=== PATIENT | male | born 1960 | race Caucasian/White ===

== ENCOUNTER → 2018-09-12 12:09 | Outpatient (CLI) | payer BC, SELFPAY ==
[2018-09-12 13:03] LABS: Bacteria Urine None Seen; RBC Urine None Seen (0-5/HPF); WBC Urine None Seen (0-5/HPF)
[2018-09-12 13:40] LABS: Appearance Urine UA CLEAR; Bilirubin Urine UA NEGATIVE (NEGATIVE); Color Urine UA YELLOW; Glucose Urine UA NEGATIVE (Normal); Ketones Urine UA NEGATIVE (NEGATIVE); Leukocyte Esterase Urine UA NEGATIVE (NEGATIVE); Nitrite Urine UA NEGATIVE (Negative); Occult Blood Urine UA NEGATIVE (Negative); Protein Urine UA NEGATIVE (Negative); Specific Gravity Urine UA 1.025 (1.000-1.035); Urobilinogen Urine UA 0.2 E.U./dL (0.2)
[2018-09-12 14:29] LABS: Culture Indicated Urine Cult Not Indicated
== END ==
PROVIDERS: PCP Family Medicine; Visit Provider Family Medicine
DX: Z01.818 Encounter for other preprocedural examination (principal); Z01.812 Encounter for preprocedural laboratory examination; Z13.1 Encounter for screening for diabetes mellitus; N39.0 Urinary tract infection, site not specified; M25.562 Pain in left knee
CPT/HCPCS: 81001; 93005; 93010

== ENCOUNTER 2018-10-18 10:56 | Inpatient (IN) | payer BC, SELFPAY ==
[2018-09-29 13:55] VITALS: BMI 37.3
[2018-10-18] VITALS (14 sets, daily range): BP systolic 123–161; BP diastolic 69–98; PULSE 73–92; RESP 11–20; TEMP 36.4–36.8; O2SAT 92–98; BMI 36.7
[2018-10-18] MEDS: PREGABALIN 75 MG CAPSULE PO (11:26)
[2018-10-18] MEDS: ACETAMINOPHEN 325 MG TABLET 975 MG PO ×2 (11:27→21:13)
[2018-10-18] MEDS: CELECOXIB 200 MG CAPSULE PO (11:27)
[2018-10-18] MEDS: LACTATED RINGERS 1,000 ML 42 ML IV (11:52)
--- NOTE | 2018-10-18 12:19 | PM.PREOP ---
Pre-operative Note Interval Note Pre-op Check: Yes History & Physical Reviewed by Physician and Yes Exam Performed Changes: No
[2018-10-18] MEDS: CEFAZOLIN 2 GM/100 ML FROZ.PIGGY IV ×2 (13:10→21:20)
--- NOTE | 2018-10-18 13:50 | SUR.OPER ---
Supine on padded OR bed. Pillow under head, arms secured on padded armboards <90 degree abduction. Safety belt across torso. Non-operative leg secured with tape over blanket over lower leg. Operative leg secured in DeMayo/Rodrigo positioner. Foam padded brace at thigh of operative leg.
[2018-10-18] MEDS: TRANEXAMIC ACID 1,000 MG VIAL 2000 MG INJ ×2 (13:58→14:57)
[2018-10-18] MEDS: BUPIVACAINE LIPOSOME 266 MG/20 ML VIAL INJ (14:00)
[2018-10-18] MEDS: BUPIVACAINE 0.25% W/ EPI VIAL 50 ML INJ (14:00)
[2018-10-18] MEDS: MORPHINE 4 MG/ML INJ IM (14:01)
[2018-10-18] MEDS: SODIUM CHLORIDE 0.9% 1406.14 ML IV (14:49)
--- NOTE | 2018-10-18 15:23 | DI.RAD.S_ITS ---
PROCEDURE: XR KNEE LT 1TO2V INDICATIONS: TOTAL LEFT KNEE TECHNIQUE: 2 view(s) of the knee acquired. [facility], [facility]Y, XR KNEE ARTHRITIC SERIES LT, 02/08/2018, 9:44. FINDINGS: Bones: Patient is status post knee joint arthroplasty. Hardware components are in expected positions. Visualized bony structures are intact. Soft tissues: Overlying postoperative changes are noted. IMPRESSION: Post operative knee arthroplasty as above. Dictated by: Luann Hall M.D. on 10/18/2018 at 16:17 Approved by: Luann Hall M.D. on 10/18/2018 at 16:17
--- NOTE | 2018-10-18 15:32 | P.OP_ITS ---
Operative Date/Time/Diagnoses Date of procedure: 10/18/18 Time of procedure: 15:20 Pre-op diagnosis: 1. Ongoing pain after left unicompartmental arthroplasty 2. Osteoarthritis of left knee Post-op diagnosis: same Procedure & Clinicians Procedure: Revision of both femoral and tibial components of unicompartmental arthroplasty to total knee replacement, left knee Same procedure as scheduled: Yes Indications: The patient is a 57-year-old gentleman who underwent unicompartmental knee replacement to the left knee earlier this year. He has had persistent and significant discomfort despite intensive physical therapy. After discussion the risks benefits and alternatives he has agreed to revision of the prosthetic. He has requested revision to total knee replacement rather than revision to another unicompartmental arthroplasty. The risks benefits and alternatives of surgery were discussed with him prior to proceeding. Risks discussed included but were not limited to: Failure to improve, stiffness, infection, deep venous thrombosis, pulmonary embolism, nerve damage, myocardial infarction, stroke, permanent paralysis and . Surgeon: Mauricio Shine Cuprous Chloride Helper: Sanjuanita Adhikari Click Yes if Unassisted: No Anesthesia Type: General, Spinal and Local Operative Notes Findings: Well-fixed unicompartmental arthroplasty with slight overhang of the medial edge of the tibial component. There was significant osteoarthritis in the patellofemoral joint and moderate osteoarthritis in the lateral compartment. Closure Type: primary Specimen(s): none sent Implants & Drains: Implants used in this procedure were manufactured by the [employer] and included the BCS II Journey total knee replacement with a size 8 left Oxinium femoral component, 8 left non porous tibial base plate, 9 mm cross-linked polyethylene tibial insert, and a 41 mm oval Sowmya II patellar component. Applied: implant(s) Estimated Blood Loss (mL): 50 Blood products transfused: none Tourniquet time (min): 76 Procedure in detail: The patient was seen in the pre-operative area, where the left knee was identified as the operative site and this was marked with my initials. The patient received pre-operative antibiotics, and was taken to the operating room and placed on the operative table in the supine position. After satisfactory anesthesia, a director multimedia out was performed. The left leg was encircled with a tourniquet about the proximal thigh, and the leg was prepared from the toes to the tourniquet with ChloroPrep in the usual fashion and draped through sterile drapes. The leg was elevated and exsanguinated with Eschmark bandage and the tourniquet inflated to 250 mmHg pressure. The knee was approached through an approximately 18 cm incision centered which included the prior incision and carried into the knee through a medial parapatellar arthrotomy. The anterior osteophytes and soft tissues were removed. The rotational landmarks of Troy's line was marked on the femur with electrocautery, and intramedullary guide holes for the femur and tibia were created. The distal femoral cut was made in 6 degrees of valgus using the intramedullary guide at the +2 mm cut setting. Initially the pins were placed for the cutting guide prior to removal of the femoral prosthetic. The medial femoral arthroplasty was then removed using osteotomes prior to making the distal femoral cut. The sizing guide was applied with rotation set by Gayle 's line. The femoral finishing guide was applied and the anterior posterior and chamfer cuts made. The proximal tibial cut was then made using the intramedullary guide, taking a skim cut just below the tibial prosthetic. The cutting guide was set up similar to the femur and after placement of the pins the tibial component was removed using osteotomes prior to making the proximal tibial cut. The posterior osteophytes and soft tissues were then removed. The posterior capsule was injected with part of a mixture of 60 ml 0.25% Marcaine mixed with 20 ml Exparel and 4 mg of morphine for post-operative pain control. The remainder of this mixture was injected into the capsule and subcutaneous tissues during cement curing. The tibia was prepared with the rotation set by an extra medullary guide. Trial tibial and femoral components were then placed and the intercondylar notch cut through the femoral trial. Range of motion was 0-135 degrees, with good stability throughout the range. The patella was then cut to accommodate the patellar prosthetic. There was no need for a lateral release. The trials were then removed, and the femoral hole plugged with a bone plug. The bone was prepared with pulsatile lavage, and dried with a sponge. Cement was applied and the final prosthetics placed. Excess cement was removed during and after cement curing. After confirming there was no extruded cement posteriorly, the final tibial insert was placed. The knee was copiously irrigated and the tourniquet deflated. Hemostasis was obtained. The capsule was closed with interrupted # 2 polyester sutures. The subcutaneous layer was closed with 3-0 Vicryl, and the skin with a running 3-0 V-Lock suture and SteriStrips. An Aquacel Ag dressing was applied and the patient was taken to recovery having tolerated the procedure well. Complications: none Condition: stable Disposition: PACU Plan for aftercare: The patient will be maintained on a standard total knee replacement protocol with weight bearing as tolerated. The patient will receive aspirin and sequential compression devices for DVT prophylaxis. The patient will be discharged home when safe for the home environment.
--- NOTE | 2018-10-18 15:40 | SUR.OPER ---
Pt. has multiple scratches on his left lower leg; observed before prep.
[2018-10-18] MEDS: LACTATED RINGERS 1,000 ML 125 ML IV (17:30)
[2018-10-18] MEDS: ASPIRIN EC 81 MG TABLET PO (21:15)
[2018-10-18] MEDS: DOCUSATE 100 MG CAPSULE PO (21:15)
--- NOTE | 2018-10-18 23:51 | PC.NURSE ---
1730- pt arrived to room 213 from PACU via bed with a Lt TKA, aquacell/daisy wrap CDI. A/O x3, 98%RA, LS clear, BT+ denies nausea. CMS- remains numbness from mid thigh down to feet, unable to wiggle toes or ankle wave. Left hand LR @ 125 infusing. Calf SCD's on. Provided ice chips, water, and brought gatorade, tolerated well. Advanced to reg diet for dinner. Urinal at bedside. Denies pain at this time. Call light in reach and bed alarm on.
[2018-10-19] VITALS (7 sets, daily range): BP systolic 128–153; BP diastolic 68–87; PULSE 67–96; RESP 16–20; TEMP 36.4–37.6; O2SAT 95–99
--- NOTE | 2018-10-19 00:53 | PC.NURSE ---
Addendum entered by Nhung Fish R.N. 10/19/18 05:31: Complains of itchiness and mild discomfort with leg movement. Requests Vistaril as he states that has helped the itching in the past. Original Note: Addendum entered by Nhung Fish R.N. 10/19/18 03:03: Has been complaining of feeling as though he has to have BM and has been unable to do. States it is putting pressure on his bladder and he is uncomfortable. While sitting on toilet had 300cc emesis; states nausea came on suddenly and now is resolved. Bladder scan indicates 889cc in bladder so straight cathed for 1250cc clear yellow urine. Now states pressure is completely relieved. Original Note: Addendum entered by Nhung Fish R.N. 10/19/18 01:43: Complaining of 2/10 pain so medicated with Ibuprofen Original Note: Patient is alert and oriented. Breath sounds CTA with RA sat of 94%. Does not want to use CPAP tonight so will monitor for any desats while asleep using continuous pulse oximeter. HRR. Denies nausea. BT present and states he has passed flatus. Voiding with some hesitancy; has to push urine out, but denies dysuria. Turns self and is assisted to bathroom to void with walker and 1 assist; denies weakness or unsteadiness. Aquacel + daisy wrap to left knee is CDI. CMS is intact. Has psoriasis with lesions/abrasions on bilateral anterior shins and at bases of nails on right hand; states he likes to pick at areas. Non pitting edema present in bilateral LE. SCD's applied at start of shift. Denies pain. Fall risk score is moderate; bed alarm activated for night.
[2018-10-19] MEDS: LACTATED RINGERS 1,000 ML 125 ML IV (01:39)
[2018-10-19] MEDS: IBUPROFEN 600 MG TABLET PO ×2 (01:39→08:46)
[2018-10-19] MEDS: CEFAZOLIN 2 GM/100 ML FROZ.PIGGY IV (05:26)
[2018-10-19] MEDS: hydrOXYzine pamoate 25 MG CAPSULE PO (05:27)
[2018-10-19 06:38] LABS: Hematocrit 37.5 % (41-53); Hemoglobin 12.7 g/dL (13.5-17.5)
--- NOTE | 2018-10-19 07:27 | PM.DS.1 ---
History of Present Illness Date Patient Seen: 10/19/18 Time Patient Seen: 07:27 Chief complaint: [id number] Narrative: The history and physical exam for this patient are contained in the chart and a previously completed note. Please refer to that note for this information. Discharge Providers Date of admission: 10/18/18 10:56 Primary care physician: Dmitriy Herrera MD Consults: 10/18/18 16:53 Consult to Discharge Planning Routine Comment: Consult to Physical Therapy Evaluate & Treat Comment: Physician Instructions: postop TKA protocol Consult to Respiratory Therapy Evaluate & Treat Comment: Physician Instructions: Evaluate and treat Discharge provider: Mauricio Shine MD Discharge Date: 10/19/18 Summary Discharge Diagnosis: 1. Failure of left unicompartmental knee arthroplasty 2. Left knee osteoarthritis 3. Postoperative urinary retention Hospital Course: The patient was admitted the hospital and taken directly to the operating room on October 18 2018. He underwent a revision of unicompartmental arthroplasty to a total knee replacement. He tolerated this procedure well and was ready for discharge on postoperative day 1. He did have an episode of urinary retention overnight requiring straight catheterization. At the time of this dictation it is planned for discharge later this morning after physical therapy. Status at Discharge Cognitive/behavioral status at discharge: Baseline Functional status at discharge: uses cane/walker Overall status at discharge: patient is progressing back to baseline Time Spent with Patient Less than 30 minutes Exam Vital Signs (past 8 hours): - 10/19/18 03:00 Temperature 97.9 F Pulse Rate 72 Respiratory Rate 16 Blood Pressure 128/79 Pulse Oximetry 95 Oxygen Delivery Method Room Air Oxygen Flow Rate 3 Narrative Exam Narrative: Left lower extremity wound is dressed with no drainage on the bandage. Calf is soft. Light touch and motion are intact in the left lower extremity. Objective Labs Result Diagrams: 10/19/18 06:09 Labs: Laboratory Results - last 24 hr 10/19/18 06:09 Hgb 12.7 L Hct 37.5 L Radiographs reveal a well-positioned left total knee arthroplasty. No signs of any operative complications. Discharge Plan Discharge Plan Patient Disposition: Home Discharge Med Rec/Prescriptions Prescriptions: New aspirin 81 mg Tablet,Delayed Release (Dr/Ec) 81 mg PO BID 42 Days Qty: 84 RF: 0 acetaminophen 325 mg Tablet 975 mg PO TID 30 Days Qty: 270 RF: 0 oxycodone 5 mg Tablet 5 mg PO Q3HR PRN (Reason: Pain, Moderate (4-6)) Qty: 60 RF: 0 hydroxyzine pamoate 25 mg Capsule 25 mg PO Q6HR PRN (Reason: Nausea) Qty: 40 RF: 0 Follow up/Referrals: Mauricio Shine MD [Physician] - 2 Weeks Provider Discharge Instructions Diet: Diet as Tolerated and Regular Activity: You may weight bear as tolerated on your left leg. Ambulate for 5-10 minutes every hour while awake. Cold/Heat Therapy: Apply ice to the left knee for 15 min every hour as needed. Skin/Wound/Dressing Care Report to your healthcare provider any signs of infection, such as:: chills, fever, night sweats, increased pain and unusual drainage Dressing: You may remove the Roberto Carlos wrap 3 days after surgery and shower normally. Leave the deeper dressing in place. If the central strip of the deeper dressing becomes saturated with either water or blood please call the office to have it changed. Discharge Data Primary Care Provider: Dmitriy Herrera Attending Provider: Mauricio Shine Admit Date/Time: 10/18/18 10:56 Quality VTE Deep Vein Thrombosis/Pulmonary Embolism Present on Admission: No
[2018-10-19] MEDS: OXYCODONE IR 5 MG TABLET PO ×4 (08:45→21:48)
[2018-10-19] MEDS: TAMSULOSIN 0.4 MG CAPSULE PO (08:46)
[2018-10-19] MEDS: ASPIRIN EC 81 MG TABLET PO ×2 (08:46→21:47)
[2018-10-19] MEDS: DOCUSATE 100 MG CAPSULE PO ×2 (08:46→21:48)
[2018-10-19] MEDS: ACETAMINOPHEN 325 MG TABLET 975 MG PO ×3 (08:47→21:47)
--- NOTE | 2018-10-19 09:46 | PT.IIE ---
Addendum entered and electronically signed by Ally Vera PT 10/19/18 16:12: This is to certify that I have reviewed this documentation and POC. Original Note: Current Diagnoses Unilateral primary osteoarthritis, left knee (10/18/18) Presence of unspecified artificial knee joint (10/18/18) Surgery Performed Operation Date: 10/18/18 12:45 Actual Procedures p Revision tibial component of UKA, Poss total knee(Left) - Mauricio Shine MD Surgical History (Last Updated 09/29/18 @ 14:11 by Dominique Machado RN) H/O vasectomy (Acute) History of arthroplasty of left knee (Acute ~12/2017) Hx of hernia repair (Acute) Medical History (Last Updated 09/29/18 @ 14:11 by Dominique Machado RN) Arthritis (Acute) Chronic liver disease (Acute) Hypercholesterolemia (Acute) Left Achilles tendinitis (Acute) Migraines (Acute) ERICA on CPAP (Acute) Psoriasis (Acute) Trigger finger of right hand (Acute) Vitamin D deficiency (Acute) Physical Therapy Inpatient Evaluation/Re-Eval M1 PT/OT-IP Prior Functional Status Start: 10/19/18 13:05 Freq: NEEDED Status: Active Protocol: Document 10/19/18 09:46 (Rec: 10/19/18 14:01 [email or web address]) Medical Review Prior Functional Status Medical History Reviewed Yes Communication No deficits noted. Mobility and Gait Pt states independent with all mobilities using no AD including self care and driving. He limps with pain after longer distances walking. Social History Household Members spouse Living Arrangements House Number of Floors (Floors) Two Floors Number of Stairs To Enter/Railing? 3 steps no rails. 18 steps B rails to upstairs where his bedroom and walk in shower are located. He is prepared to sleep in his recliner on the first floor and take sponge baths for a while if needed. Home Environment Standard Height Toilet Walk in Shower Built-In Shower Seat Home Equipment Straight Cane Crutches Hand Held Shower Employment Status Process Control Supervisor Employed Additional Social History Comment Pt not returning to work until Oct 8 at a minimum. Pts bed has mechanical feature to elevate HOB. Can use the door jam in bathroom to assist sit<> stand from toilet. M2 PT-IP Current Condition Start: 10/19/18 13:05 Freq: NEEDED Status: Active Protocol: Document 10/19/18 09:46 (Rec: 10/19/18 14:01 [email or web address]) Physical Therapy Current Condition Current Condition Evaluation Date 10/19/18 Treatment Diagnosis L TKR; Difficulty walking Onset Date 10/18/2018 Weight Bearing Status Weight Bearing Status Weight Bear as Tolerated M3 PT-IP Subjective Start: 10/19/18 13:05 Freq: NEEDED Status: Active Protocol: Document 10/19/18 09:46 (Rec: 10/19/18 14:01 [email or web address]) Subjective Physical Therapy Visit Type Type Initial Evaluation Visit Start Time 09:46 Visit Stop Time 10:42 Total Visit Minutes 56 Number of REGISTERED NURSE HH CASE MANAGER Visits 0 Physical Therapy Visit Comments Patient Comments Pt agreeable to mobilize with PT Patient Goals Pt planning to d/c home with who is avaliable to assist 21/06. He would like to access the 2nd floor of his home. Therapy Pain Assessment Pain When Pain Assessed During Mobility Pain Present Pain Present Pain Reported Location Left Knee Scale Used 0-3 while resting. Up to 5/10 during mobility. Pain Management Techniques Apply Cold Elevation Modification of Treatment Re-positioning Timing of Activity with Medications M4 PT-IP Mobility and Gait Start: 10/19/18 13:05 Freq: NEEDED Status: Active Protocol: Document 10/19/18 09:46 (Rec: 10/19/18 14:01 [email or web address]) PT-Bed Mobility Assessment Supine to Sit Supine to Sit Standby Assistance Sit to Supine Sit to Supine Standby Assistance Scooting Scooting to Edge of Bed Standby Assistance PT-Transfer Assessment Sit to and From Stand Sit to and from Stand Contact Guard Assistance Maximum Assistance 1 Person Assistance Use of Upper Extremities Equipment Transfer Assistive Device Gait Belt Front Wheeled Walker Orthotic/Prosthetic Devices or Brace: No Transfers Transfer Destination Bed Chair Wheelchair Transfer Technique Ambulates between surfaces Comments Mobility Comments Resting BP 125/77 HR 78. Sit <> supine is SBA no cues. Sit <> stand with fww is CGA with min cues. Pt denying symptoms of dizziness, headache or nausea. Attempted sit <> stand with B axillary crutches maxAX1 to rise and pt is (+) for LOB requiring Edward to regain balance. Pt not safe with B crutches; recommending fww. Gait Assessment Gait Gait Assistance Required: Standby Assistance Distance (Feet) 50 Able to Maintain Weight Bearing Status Yes During Gait Assistive Devices Assistive Device Gait Belt Front Wheeled Walker Orthotic/Prosthetic Devices or Brace: No Gait Deviations General Gait Pattern Decreased Stride Length Flexed Trunk Factors Limiting Gait Function Factors Limiting Gait Function Decreased Activity Tolerance Decreased Strength Limited Range of Motion Pain Poor Balance Poor Safety Awareness Comments Gait Comments Pt ambulates 50 ft in room with fww SBA min cues for walker management. Gait is notable for decreased stride length and forward flexed trunk. Flexed trunk is likely due to poorly fitting fww. Pt states 6'7 height and was given the tallest walker avaliable. Pt is able to partially correct posture with cues. Stair Climbing Assessment Evaluation Level of Assist On Stairs Contact Guard Assistance Minimal Assistance Devices Stair Climbing Assistive Devices Straight Cane Left Railing Right Railing Technique/Endurance Stair Climbing Direction Ascend and Descend Stair Climbing Technique Step to Step Number of Steps Climbed 3 Query Text: Stair Climbing Set # Repetitions (reps) 3 Comments Stair Climbing Comments 1st attempt up/down 3 steps pt uses moderate reliance on B rails, CGA and min cues. 2nd attempt pt uses R rail ascending, L rail descending, CGA and min cues. 3rd attempt pt uses spc in R hand, minAx1 for support and steadying and min cues. PT-Balance Assessment Sitting Balance and Reactions Static Sitting Balance Ability Good Dynamic Sitting Balance Ability Good Standing Balance and Reactions Static Standing Balance Ability Good Dynamic Standing Balance Ability Fair Device Used fww M5 PT-IP Objective Assessments Start: 10/19/18 13:05 Freq: NEEDED Status: Active Protocol: Document 10/19/18 09:46 (Rec: 10/19/18 14:01 [email or web address]) Orientation Orientation/Cognition Level of Alertness Alert Orientation Name Age Birthday Month Date Year Day of Week Place Situation Language Function Ability No Deficits Noted Safety Awareness Decreased Safety Awareness Memory Description No Deficits Noted Gross Range of Motion Lower Extremity ROM Assessment Left Impaired Impairments L knee flexion 90deg. Strength Lower Extremity Strength Assessment Left Impaired Hip 3+ Knee 3+ Ankle 5 Comments Strength Comments RLE 5/5 Sensation Assessment Sensation Light Touch Intact M6 PT-IP Treatment Start: 10/19/18 13:05 Freq: NEEDED Status: Active Protocol: Document 10/19/18 09:46 (Rec: 10/19/18 14:01 [email or web address]) Physical Therapy Treatment Exercises Exercises Ankle Pumps Quad Sets Heel Slides Straight Leg Raises Short Arc Quads Passive Knee Extension Hang Seated Knee Flexion/Extension Education Education Provided Precautions Weight Bearing Status Post-Op Packet Safety M7 PT-IP Assessment and Plan Start: 10/19/18 13:05 Freq: NEEDED Status: Active Protocol: Document 10/19/18 09:46 (Rec: 10/19/18 14:01 [email or web address]) PT Summary Assessment and Plan Potential Rehabilitation Potential Good Status of Condition at Evaluation Stable Summary Impairments Pain ROM Strength Balance Bed Mobility Transfers Gait Activity Tolerance Progress Towards Goals Slow Progress due to Medical Issues Assessment Summary Pt s/p L TKA with difficulty walking. He was able to walk 50 ft with fww and CGA and completed up/down 3 steps with Edward and spc. Pt is not safe using axillary crutches and our recommendation is to use fww for all ambulation and transfers. He understands and is attempting to secure a walker through the [employer] in [place] as does not want to purchase a fww unless it is covered 100% by his insurance. Caregiver training needs to be completed prior to d/c as pt is requiring assist with mobilities for safety. Once caregiver training is completed and pt is medically ready, recommend d/c to home with 24/7 assist of and OP PT. Goals Bed Mobility Goal Independent Transfer Goal Standby Assistance Front Wheeled Walker Gait Goal Standby Assistance Front Wheel Walker Gait Distance 150 Other Goals up/down 3 steps using spc CGA. Up/down 18 steps B rails CGA as able for pt to be able to access 2nd floor of his home where his bedroom and shower are. Days to Meet Goals 2 Frequency of Treatment Frequency Of Treatment Twice a Day Treatment Plan Physical Therapy Treatment Plan Bed Mobility Training Transfer Training Gait Training Therapeutic Exercise Balance Retraining Post Op Education Discharge Planning Hot or Cold Pack Neuromuscular Re-ed Coordination Retraining Manual Therapy Other Recommendations and Next Treatment Caregiver training. Progress Focus stair climbing. Recommendations To Nursing Amount of Assist Needed 1 Person Assist Discharge Recommendations PT Discharge Recommendations Home with 24/7 Assist Outpatient PT Equipment Needed for Home Before fww Discharge
--- NOTE | 2018-10-19 14:50 | PT.IPTN ---
Addendum entered and electronically signed by Ally Vera PT 10/19/18 17:23: This is to certify that I have reviewed this documentation and POC Original Note: Current Diagnoses Unilateral primary osteoarthritis, left knee (10/18/18) Presence of unspecified artificial knee joint (10/18/18) Surgery Performed Operation Date: 10/18/18 12:45 Actual Procedures p Revision tibial component of UKA, Poss total knee(Left) - Mauricio Shine MD Physical Therapy Treatment Note M2 PT-IP Current Condition Start: 10/19/18 13:05 Freq: NEEDED Status: Active Protocol: Document 10/19/18 09:46 (Rec: 10/19/18 14:01 [id number]) Physical Therapy Current Condition Current Condition Evaluation Date 10/19/18 Treatment Diagnosis L TKR; Difficulty walking Onset Date 10/18/2018 Weight Bearing Status Weight Bearing Status Weight Bear as Tolerated M3 PT-IP Subjective Start: 10/19/18 13:05 Freq: NEEDED Status: Active Protocol: Document 10/19/18 14:50 (Rec: 10/19/18 17:02 [id number]) Subjective Physical Therapy Visit Type Type Treatment Note Visit Start Time 14:50 Visit Stop Time 15:15 Total Visit Minutes 25 Number of R D INTERNSHIP Visits 0 Physical Therapy Visit Comments Patient Comments Pt agreeable to mobilize with PT. present for session and agreeable to participate in caregiver training. Pt obtained fww. Patient Goals Planning to d/c home with assist of . Desires access to upstairs floor (18 steps B rails) Therapy Pain Assessment Pain When Pain Assessed During Mobility Pain Present Pain Present Pain Reported Location Left Knee Intensity 3 Pain Management Techniques Apply Cold Elevation Modification of Treatment Re-positioning Timing of Activity with Medications M4 PT-IP Mobility and Gait Start: 10/19/18 13:05 Freq: NEEDED Status: Active Protocol: Document 10/19/18 14:50 (Rec: 10/19/18 17:02 [id number]) PT-Transfer Assessment Sit to and From Stand Sit to and from Stand Standby Assistance Use of Upper Extremities Equipment Transfer Assistive Device Front Wheeled Walker Orthotic/Prosthetic Devices or Brace: No Transfers Transfer Destination Chair Transfer Technique Ambulates between surfaces. Comments Mobility Comments Sit <> stand with fww SBA no cues. Gait Assessment Gait Gait Assistance Required: Standby Assistance Distance (Feet) 300 Able to Maintain Weight Bearing Status Yes During Gait Assistive Devices Assistive Device Gait Belt Front Wheeled Walker Orthotic/Prosthetic Devices or Brace: No Gait Deviations General Gait Pattern Antalgic Decreased Stride Length Factors Limiting Gait Function Factors Limiting Gait Function Decreased Activity Tolerance Decreased Strength Limited Range of Motion Pain Poor Balance Comments Gait Comments Pt ambulates 300 ft with fww SBA. Gait notable for antalgic limp over LLE and decreased stride length R LE. Antalgic gait as patient progresses walking. Stair Climbing Assessment Evaluation Level of Assist On Stairs Minimal Assistance 1 Person Assistance Devices Stair Climbing Assistive Devices Straight Cane Technique/Endurance Stair Climbing Direction Ascend and Descend Stair Climbing Technique Step to Step Number of Steps Climbed 3 Query Text: Stair Climbing Set # Repetitions (reps) 3 Comments Stair Climbing Comments 1st attempt pt performs up/ down 3 steps with spc and minAx1 provided by PT as a demonstration for caregiver/ . 2nd and 3rd attempts, pt performs up/down 3 steps with minAx1 provided by caregiver/, caregiver needed min cues and PT providing SBA for safety. PT-Balance Assessment Sitting Balance and Reactions Static Sitting Balance Ability Good Dynamic Sitting Balance Ability Good Standing Balance and Reactions Static Standing Balance Ability Good Dynamic Standing Balance Ability Fair Device Used fww M5 PT-IP Objective Assessments Start: 10/19/18 13:05 Freq: NEEDED Status: Active Protocol: Document 10/19/18 09:46 (Rec: 10/19/18 14:01 [id number]) Orientation Orientation/Cognition Level of Alertness Alert Orientation Name Age Birthday Month Date Year Day of Week Place Situation Language Function Ability No Deficits Noted Safety Awareness Decreased Safety Awareness Memory Description No Deficits Noted Gross Range of Motion Lower Extremity ROM Assessment Left Impaired Impairments L knee flexion 90deg. Strength Lower Extremity Strength Assessment Left Impaired Hip 3+ Knee 3+ Ankle 5 Comments Strength Comments RLE 5/5 Sensation Assessment Sensation Light Touch Intact M6 PT-IP Treatment Start: 10/19/18 13:05 Freq: NEEDED Status: Active Protocol: Document 10/19/18 14:50 (Rec: 10/19/18 17:02 [id number]) Physical Therapy Treatment Exercises Knee ROM Measurement L knee flexion 90 deg. L knee extension lacks ~10deg Education Education Provided Safety Other Treatments Other Treatment Performed Caregiver training today included donning/doffing of gait belt, hand hold on gait belt and safeguarding during ambulation and stairs. Pt and caregiver were both able to demonstrate all of the above safely and stated being comfortable wtih performance. M7 PT-IP Assessment and Plan Start: 10/19/18 13:05 Freq: NEEDED Status: Active Protocol: Document 10/19/18 14:50 (Rec: 10/19/18 17:02 [id number]) PT Summary Assessment and Plan Potential Rehabilitation Potential Good Summary Impairments Pain ROM Strength Balance Bed Mobility Transfers Gait Activity Tolerance Progress Towards Goals Progressing Toward Goals Assessment Summary Caregiver training completed. Pt ambulated 300 ft with fww and SBA of as well as up/ down 6 steps with providing minAX1 with min cues . Pt and demonstrated safety with all concepts. When pt is medically ready, recommend d/c to home with assist of and OP PT. Goals Bed Mobility Goal Independent Transfer Goal Independent Front Wheeled Walker Gait Goal Independent Front Wheel Walker Gait Distance 400 ft. Other Goals Up/down 18 steps with B rails so pt may access 2nd floor where his bedroom and shower are located. Days to Meet Goals 2 Frequency of Treatment Frequency Of Treatment Twice a Day Treatment Plan Physical Therapy Treatment Plan Bed Mobility Training Transfer Training Gait Training Therapeutic Exercise Balance Retraining Post Op Education Discharge Planning Hot or Cold Pack Neuromuscular Re-ed Coordination Retraining Manual Therapy Other Recommendations and Next Treatment progress stair climbing and Focus ambulation. Recommendations To Nursing Amount of Assist Needed Standby Assistance Discharge Recommendations PT Discharge Recommendations Home with Assistance Outpatient PT Equipment Needed for Home Before Pt obtained fww. Discharge
--- NOTE | 2018-10-19 15:15 | PC.NURSE ---
Ortho: I/O Cath at 0300 this am. Pt up to br at 0800, not able to void. PA made aware and received order for flomax. Same given. IVF were salined locked. Pt instructed not to overdo fluids but he does need to drink. Has been up several times to amb. Did try to vd x2 but unable. Last bladder scan at 1230 was 350mls. Pt would like to try amb again after his family leaves and then sitting in the shower to see if that helps relaxes muscles and he can urinate. Ortho [place] he has done well, up and amb with sba only. Gait is steady, is following his total hip precautions. PPP, fett =/warm. Aquacel dressing dry. Tolerates diet w/out problems. If it wasn't for the voiding issues he feels he could d/c home today. Hopefull will be able to void. Cont w/poc.
--- NOTE | 2018-10-19 20:59 | PC.NURSE ---
Addendum entered by Shira Mendez R.N. 10/19/18 21:07: 1830- Pt up to BRP to void 750mL clear yellow urine, and med loose stool. Original Note: 1645- pt up to BRP FWW to void 450mL clear yellow urine. Back to chair for dinner, then walk hallways with student nurse. Left knee aquacell/acewrap CDI. BT+, denies nausea. Rates pain 2-4/10, oxycodone 5mg PO effective for pain relief. discharge ordered by Dr Shine this morning. Pt's will be here at 11:00am tomorrow to pick pt up. No c/o or concerns at this time. Call light in reach.
[2018-10-19] MEDS: SODIUM CHLORIDE 0.9% FLUSH 10 ML IV (21:30)
[2018-10-20 01:24] VITALS: BP 115/73; PULSE 77; RESP 14; TEMP 36.9; O2SAT 95
[2018-10-20] MEDS: OXYCODONE IR 5 MG TABLET PO ×3 (03:50→10:34)
--- NOTE | 2018-10-20 03:58 | PC.NURSE ---
Addendum entered by Nhung Fish R.N. 10/20/18 05:50: States pain is nearly gone. Has been awake watching TV and working on leg exercises. Expects to DC this morning around 0930 Original Note: Has been sleeping most of shift. Now aroused readily to voice. Is alert and oriented. Breath sounds diminished but CTA with RA sat of 97%; using CPAP when asleep. HRR. Denies nausea. BT present and is passing flatus but abdomen is distended and firm to touch. Voided 500cc urine with PVR of 54cc; denies dysuria. Able to turn self in bed. Was able to get in/out of bed independently and walked to bathroom with walker and SBA. CMS is intact. Initially denied pain but after being up to bathroom states pain is 6/10 with movement and 3/10 at rest; medicated with Oxycodone and ice pack applied. Dressing + daisy is CDI. Fall risk score is moderate; no bed alarm needed at this time as patient calling appropriately for assistance.
[2018-10-20 03:59] VITALS: TEMP 36.7
--- NOTE | 2018-10-20 08:46 | PT.IPTN ---
Current Diagnoses Unilateral primary osteoarthritis, left knee (10/18/18) Presence of unspecified artificial knee joint (10/18/18) Surgery Performed Operation Date: 10/18/18 12:45 Actual Procedures p Revision tibial component of UKA, Poss total knee(Left) - Mauricio Shine MD Physical Therapy Treatment Note M2 PT-IP Current Condition Start: 10/19/18 13:05 Freq: NEEDED Status: Active Protocol: Document 10/20/18 08:40 AMB (Rec: 10/20/18 08:46 AMB [id number]) Physical Therapy Current Condition Current Condition Evaluation Date 10/19/18 Treatment Diagnosis L TKR; Difficulty walking Onset Date 10/18/2018 Weight Bearing Status Weight Bearing Status Weight Bear as Tolerated M3 PT-IP Subjective Start: 10/19/18 13:05 Freq: NEEDED Status: Active Protocol: Document 10/20/18 08:40 AMB (Rec: 10/20/18 08:46 AMB [id number]) Subjective Physical Therapy Visit Type Type Treatment Note Visit Start Time 08:10 Visit Stop Time 08:40 Total Visit Minutes 30 Number of MANAGER OF DEVELOPMENT Visits 0 Physical Therapy Visit Comments Patient Comments Pt agreeable to get up. He has already walked with nursing earlier in the morning . Therapy Pain Assessment Pain When Pain Assessed During Mobility Pain Present Pain Present Pain Reported M4 PT-IP Mobility and Gait Start: 10/19/18 13:05 Freq: NEEDED Status: Active Protocol: Document 10/20/18 08:40 AMB (Rec: 10/20/18 08:46 AMB [id number]) PT-Bed Mobility Assessment Supine to Sit Supine to Sit Standby Assistance Sit to Supine Sit to Supine Standby Assistance Scooting Scooting to Edge of Bed Independent PT-Transfer Assessment Sit to and From Stand Sit to and from Stand Standby Assistance Use of Upper Extremities Equipment Transfer Assistive Device Front Wheeled Walker Orthotic/Prosthetic Devices or Brace: No Transfers Transfer Destination Chair Transfer Technique Ambulates between surfaces. Comments Mobility Comments Sit <> stand with fww SBA no cues. Gait Assessment Gait Gait Assistance Required: Standby Assistance Distance (Feet) 150 Able to Maintain Weight Bearing Status Yes During Gait Assistive Devices Assistive Device Gait Belt Front Wheeled Walker Orthotic/Prosthetic Devices or Brace: No Gait Deviations General Gait Pattern Antalgic Decreased Stride Length Factors Limiting Gait Function Factors Limiting Gait Function Decreased Activity Tolerance Decreased Strength Limited Range of Motion Pain Poor Balance Comments Gait Comments Pt ambulated 150 feet with stiff gait. Better as he warmed up, but needed vc for knee flexion with swing through. Stair Climbing Assessment Evaluation Level of Assist On Stairs Standby Assistance Devices Stair Climbing Assistive Devices Right Railing Technique/Endurance Stair Climbing Direction Ascend and Descend Stair Climbing Technique Step to Step Number of Steps Climbed 3 Query Text: Stair Climbing Set # Repetitions (reps) 3 Comments Stair Climbing Comments Pt with 3 steps to enter without railing, but will have a pillar and use his SPC. has already been trained in how to gaurd him. M5 PT-IP Objective Assessments Start: 10/19/18 13:05 Freq: NEEDED Status: Active Protocol: Document 10/19/18 09:46 (Rec: 10/19/18 14:01 [id number]) Orientation Orientation/Cognition Level of Alertness Alert Orientation Name Age Birthday Month Date Year Day of Week Place Situation Language Function Ability No Deficits Noted Safety Awareness Decreased Safety Awareness Memory Description No Deficits Noted Gross Range of Motion Lower Extremity ROM Assessment Left Impaired Impairments L knee flexion 90deg. Strength Lower Extremity Strength Assessment Left Impaired Hip 3+ Knee 3+ Ankle 5 Comments Strength Comments RLE 5/5 Sensation Assessment Sensation Light Touch Intact M6 PT-IP Treatment Start: 10/19/18 13:05 Freq: NEEDED Status: Active Protocol: Document 10/20/18 08:40 AMB (Rec: 10/20/18 08:46 AMB [id number]) Physical Therapy Treatment Exercises Exercises Ankle Pumps Quad Sets Heel Slides Knee ROM Measurement knee AAROM in seated with other leg helping M7 PT-IP Assessment and Plan Start: 10/19/18 13:05 Freq: NEEDED Status: Active Protocol: Document 10/20/18 08:40 AMB (Rec: 10/20/18 08:46 AMB [id number]) PT Summary Assessment and Plan Summary Assessment Summary Pt is doing well, although does have pain with knee flexion. Reviewed HEP. Pt is hoping to d/c home with today, that would be appropriate when medically stable. Goals Bed Mobility Goal Independent Transfer Goal Independent Front Wheeled Walker Gait Goal Independent Front Wheel Walker Gait Distance 400 ft. Other Goals Up/down 18 steps with B rails so pt may access 2nd floor where his bedroom and shower are located. Days to Meet Goals 2 Frequency of Treatment Frequency Of Treatment Once a Day Treatment Plan Physical Therapy Treatment Plan Bed Mobility Training Transfer Training Gait Training Therapeutic Exercise Balance Retraining Post Op Education Discharge Planning Hot or Cold Pack Neuromuscular Re-ed Coordination Retraining Manual Therapy Other Recommendations and Next Treatment progress stair climbing and Focus ambulation. Recommendations To Nursing Amount of Assist Needed Standby Assistance Discharge Recommendations PT Discharge Recommendations Home with Assistance Outpatient PT Equipment Needed for Home Before Pt obtained fww. Discharge
--- NOTE | 2018-10-20 09:06 | PM.DS.1 ---
History of Present Illness Date Patient Seen: 10/20/18 Time Patient Seen: 09:07 Chief complaint: [id number] Narrative: The history and physical exam for this patient are contained in the chart and a previously completed note. Please refer to that note for this information. Discharge Providers Date of admission: 10/18/18 10:56 Primary care physician: Dmitriy Herrera MD Consults: 10/18/18 16:53 Consult to Discharge Planning Routine Comment: Consult to Physical Therapy Evaluate & Treat Comment: Physician Instructions: postop TKA protocol Consult to Respiratory Therapy Evaluate & Treat Comment: Physician Instructions: Evaluate and treat Discharge provider: Mauricio Shine MD Discharge Date: 10/20/18 Summary Discharge Diagnosis: 1. Failed left knee unicompartmental arthroplasty 2. Left knee osteoarthritis 3. Postoperative urinary retention Hospital Course: Patient was admitted to the hospital and taken directly to the operating room on October 20, 2018. He underwent an uncomplicated revision of unicompartmental arthroplasty to total knee replacement. His postoperative course was marked by adequate pain control however he did have difficulty with urination. This required straight catheterization and eventually he had additional trouble voiding and therefore his discharge was held yesterday until this morning. Yesterday evening he began spontaneously void large amounts and has had no further difficulty urinating. He has made excellent progress with physical therapy and at this point is ready for discharge home. Status at Discharge Cognitive/behavioral status at discharge: Baseline Functional status at discharge: uses cane/walker Overall status at discharge: patient is progressing back to baseline Time Spent with Patient Less than 30 minutes Exam Vital Signs (past 8 hours): - 10/20/18 01:24 10/20/18 03:59 Temperature 98.4 F 98.0 F Pulse Rate 77 Respiratory Rate 14 Blood Pressure 115/73 Pulse Oximetry 95 Oxygen Delivery Method Room Air,CPAP Oxygen Flow Rate 0 Objective Labs Result Diagrams: 10/19/18 06:09 Discharge Plan Discharge Plan Patient Disposition: Home Discharge Med Rec/Prescriptions Prescriptions: New aspirin 81 mg Tablet,Delayed Release (Dr/Ec) 81 mg PO BID 42 Days Qty: 84 RF: 0 acetaminophen 325 mg Tablet 975 mg PO TID 30 Days Qty: 270 RF: 0 oxycodone 5 mg Tablet 5 mg PO Q3HR PRN (Reason: Pain, Moderate (4-6)) Qty: 60 RF: 0 hydroxyzine pamoate 25 mg Capsule 25 mg PO Q6HR PRN (Reason: Nausea) Qty: 40 RF: 0 Follow up/Referrals: Dmitriy Herrera MD [Primary Care Provider] - Mauricio Shine MD [Physician] - 2 Weeks Provider Discharge Instructions Diet: Diet as Tolerated and Regular Activity: You may weight bear as tolerated on your left leg. Ambulate for 5-10 minutes every hour while awake. Cold/Heat Therapy: Apply ice to the left knee for 15 min every hour as needed. Skin/Wound/Dressing Care Report to your healthcare provider any signs of infection, such as:: chills, fever, night sweats, increased pain and unusual drainage Dressing: You may remove the [place] wrap 3 days after surgery and shower normally. Leave the deeper dressing in place. If the central strip of the deeper dressing becomes saturated with either water or blood please call the office to have it changed. Visit Report/Discharge Packet Visit Report Forms: Stroke Signs & Symptoms Discharge Data Primary Care Provider: Dmitriy Herrera Attending Provider: Mauricio Shine Admit Date/Time: 10/18/18 10:56 Quality VTE Deep Vein Thrombosis/Pulmonary Embolism Present on Admission: No
[2018-10-20] MEDS: ASPIRIN EC 81 MG TABLET PO (09:13)
[2018-10-20] MEDS: ACETAMINOPHEN 325 MG TABLET 975 MG PO (09:13)
[2018-10-20] MEDS: TAMSULOSIN 0.4 MG CAPSULE PO (09:13)
[2018-10-20] MEDS: DOCUSATE 100 MG CAPSULE PO (09:14)
[2018-10-20 10:17] VITALS: PULSE 83; RESP 20; TEMP 36.8; O2SAT 95
== END 2018-10-20 11:24 | disposition home or self-care (01) | DRG 467 ==
PROVIDERS: Admitting Provider Orthopaedic Surgery; PCP Family Medicine; Visit Provider Orthopaedic Surgery
PROC: 0SRD0J9 Replacement of Left Knee Joint with Synthetic Substitute, Cemented, Open Approach (ICD-10-PCS; principal; 2018-10-18 12:45)
DX: M17.12 Unilateral primary osteoarthritis, left knee (principal); T84.84XA Pain due to internal orthopedic prosthetic devices, implants and grafts, initial encounter; G47.33 Obstructive sleep apnea (adult) (pediatric); R33.9 Retention of urine, unspecified
CPT/HCPCS: 36415; 73560; 85014; 85018; 97110; 97116; 97161; 97530; C1776; C9290; J0690; J1100; J2250; J2270; J2274; J2405; J2704; J3010

== ENCOUNTER → 2020-11-26 16:01 | Outpatient (CLI) | payer OTHER, SELFPAY ==
[2018-10-18 18:21] VITALS: BMI 36.7
--- NOTE | 2020-11-26 | DI.MRI.S_ITS ---
PROCEDURE: MR ANGIO HEAD WO CON INDICATIONS: HEADACHE, UNSPECIFIED TECHNIQUE: Noncontrast axial 3-D [id number] MR angiogram, with 3-dimensional maximum intensity projection (MIP) reformats of the internal carotid arteries and posterior circulation then performed. COMPARISON: None. FINDINGS: Image quality: Excellent. Anterior circulation: Intracranial internal carotid arteries demonstrate normal size and intraluminal flow signal. The flow within the paired anterior cerebral arteries is normal and symmetric. The flow within the middle cerebral arteries is normal and symmetric. The anterior communicating artery is seen. No stenoses, occlusions, or aneurysms. There is normal variant origin of the left posterior cerebral artery off the anterior circulation. Posterior circulation: The distal vertebral arteries appear relatively symmetric as they exit the vertebral foramina. The distal right vertebral artery is normal in its course. There is loss of signal focally in the V4 segment of the left vertebral artery, of uncertain significance. The basilar artery is of normal caliber. The flow within the posterior cerebral arteries is normal and symmetric. No aneurysms. IMPRESSION: 1. Focal loss of signal in the distal left vertebral artery, of uncertain significance. Consider CT angiography to exclude a focal dissection. 2. Normal variant origin of the left posterior cerebral artery off the anterior circulation. 3. Otherwise unremarkable study. Comment: Consider CT angiography of the head and neck to evaluate the distal left vertebral artery. Dictated by: Ki Merino M.D. on 11/27/2020 at 9:17 Approved by: Ki Merino M.D. on 11/27/2020 at 9:24
== END ==
PROVIDERS: PCP Family Medicine; Referring Provider Family Medicine; Visit Provider Family Medicine
DX: R51.9 Headache, unspecified (principal)
CPT/HCPCS: 70544

== ENCOUNTER → 2020-12-25 12:20 | Outpatient (CLI) | payer OTHER, SELFPAY ==
[2018-10-18 18:21] VITALS: BMI 36.7
[2020-12-25 12:52] LABS: BUN Creatinine Ratio 15.4 (6-22); Blood Urea Nitrogen 16 mg/dL (9-20); Estimated Glomerular Filt Rate > 60.0 mL/min (>60)
--- NOTE | 2020-12-25 14:08 | DI.CT.S_ITS ---
PROCEDURE: CT ANGIO HEAD AND NECK INDICATIONS: dissection of vertebral artery TECHNIQUE: Pre-contrast 4.5 mm thick sections acquired from the foramen magnum to the vertex. After the administration of intravenous contrast, 1 mm thick sections acquired from the aortic arch through the [place] of [place]. Post-contrast 4.5 mm thick sections then re-acquired from the foramen magnum to the vertex. 3-dimensional [id number] (MIP) and/or volume rendering reformats were acquired of the central intracranial vasculature and neck separately. COMPARISON: [facility], MR, MR ANGIO HEAD WO CON, 11/26/2020, 16:22. FINDINGS: Image quality: Excellent. BRAIN: CSF spaces: Ventricles are normal in size and shape. Basal cisterns are patent. No extra-axial fluid collections. Brain: No midline shift. No intracranial bleeds or masses. Ovalle-white matter interface appears intact. Skull and face: Calvarium and facial bones appear intact, without suspicious lesions. Orbits appear normal. Sinuses: Sinuses demonstrate right maxillary sinus mucous cyst vs polyp. HEAD CT ANGIOGRAPHY: Anterior circulation: Intracranial internal carotid arteries are normal in size and flow. The flow within the paired anterior cerebral arteries is normal and symmetric. The flow within the middle cerebral arteries is normal and symmetric. The anterior communicating artery is seen. No aneurysms are seen. Posterior circulation: Visualized portions of the vertebral arteries demonstrate normal caliber, and join to form a normal appearing basilar artery. Flow within the posterior cerebral arteries is normal and symmetric. No aneurysms are seen. Mild right vertebral artery dominance. NECK CT ANGIOGRAPHY: Carotid system: The great vessels demonstrate a conventional anatomy as they arise from the aortic arch. The origins of the common carotid arteries appear patent. The common carotid arteries demonstrate normal caliber and courses. The bifurcation regions are both widely patent. The internal carotid arteries demonstrate normal calibers and courses. Posterior circulation: The origins of the vertebral arteries both appear widely patent. The more superior extracranial portions of both vertebral arteries also demonstrate normal courses and calibers. They join to form a normal appearing basilar artery. Soft tissues: Visualized neck soft tissues demonstrate no suspicious abnormalities. Bones: No suspicious bony lesions. Visualized cervical spine appears normally aligned. IMPRESSION: 1. No acute intracranial process. 2. No areas of hemodynamically significant stenosis, vascular occlusion or aneurysmal dilation within the anterior circulation. 3. No areas of hemodynamically significant stenosis, vascular occlusion or aneurysmal dilation within the neck vasculature. Any quantitative measurements of stenosis were performed using NASCET criteria. Dictated by: Luann Hall M.D. on 12/25/2020 at 16:05 Approved by: Luann Hall M.D. on 12/25/2020 at 16:16
== END ==
PROVIDERS: PCP Family Medicine; Referring Provider Family Medicine; Visit Provider Family Medicine
DX: I77.74 Dissection of vertebral artery (principal)
CPT/HCPCS: 36415; 70496; 70498; 82565; 84520